=== PATIENT | female | born 1935 | race Caucasian/White ===

== ENCOUNTER 2017-07-26 09:18 | Day surgery (SDC) | payer MEDICARE, BC ==
[~2017-07-26 09:18] MED LIST: Albuterol 0.083% 2.5 MG/3 ML Neb Soln NEB SCH; Lactated Ringers 1,000 ML IV SCH; Lidocaine 1%/Sod Bicarbonate in NS 8.4% 1 ML Syringe IDERM PRN; Sodium Chloride 0.9% 10 ML Syringe FLUSH PRN
--- NOTE | 2017-07-26 09:44 | PCM.PREANE ---
Preanesthetic Assessment - Procedure Proposed Procedure: colonoscopy - Anesthesia/Transfusion/Family Hx Anesthesia History: Prior Anesthesia Without Reaction Family History of Anesthesia Reaction: No Transfusion History: No Prior Transfusion(s) - Review of Systems General: No Symptoms Pulmonary: Shortness of Breath (normal for her) Cardiovascular: No Symptoms Gastrointestinal: No Symptoms Neurological: No Symptoms, Other (brain aneurysm) Other: Reports: Thyroid Problems - Physical Assessment NPO Status Date: 07/25/17 NPO Status Time: 23:00 Pulse: 92 O2 Sat by Pulse Oximetry: 96 Respiratory Rate: 16 Blood Pressure: 142/72 Temperature: 98 F Height: 5 ft 7 in Weight: 43.227 kg ASA Class: 3 Mental Status: Alert & Oriented x3 Airway Class: Mallampati = 1 Dentition: Reports: Dentures (top and bottom) Thyro-Mental Finger Breadths: 3 Mouth Opening Finger Breadths: 3 ROM/Head Extension: Full Lungs: Clear to Auscultation, Normal Respiratory Effort, Decreased Breath Sounds Cardiovascular: Regular Rate, Regular Rhythm - Allergies Allergies/Adverse Reactions: Allergies Allergy/AdvReac Type Severity Reaction Status Date / Time nicotine [From [employer] ] Allergy Rash Verified 07/23/17 10:49 triamcinolone Allergy Confusion Verified 07/23/17 10:49 codeine AdvReac Excitabilit Verified 07/23/17 10:49 y - Blood Blood Available: No - Acknowledgements Anesthesia Type Planned: MAC Pt an Appropriate Candidate for the Planned Anesthesia: Yes Alternatives and Risks of Anesthesia Discussed w Pt/Guardian: Yes Pt/Guardian Understands and Agrees with Anesthesia Plan: Yes PreAnesthesia Questionnaire HEENT History: Reports: Impaired Vision, Other (See Below) Other HEENT History: has dentures, glasses Cardiovascular History: Reports: High Cholesterol, Hypertension Respiratory History: Reports: SOB Gastrointestinal History: Reports: Colon Polyp Genitourinary History: Reports: Renal Calculus, Other (See Below) Other Genitourinary History: macrocytosis 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 Musculoskeletal History: Reports: Osteoporosis Neurological History: Reports: Cerebral Aneurysms Psychiatric History: Reports: None Endocrine/Metabolic History: Reports: Hypothyroidism Hematologic History: Reports: None Immunologic History: Reports: Immunosuppression Oncologic (Cancer) History: Reports: Lung Dermatologic History: Reports: None - Past Surgical History Head Surgeries/Procedures: Reports: Shunt HEENT Surgical History: Reports: Oral Surgery Cardiovascular Surgical History: Reports: None Respiratory Surgical History: Reports: None GI Surgical History: Reports: Colonoscopy Female Surgical History: Reports: None Male Surgical History: Reports: None Endocrine Surgical History: Reports: None Musculoskeletal Surgical History: Reports: None Dermatological Surgical History: Reports: None - SUBSTANCE USE Smoking Status *Q: Former Smoker Tobacco Use Within Last Twelve Months: No Second Hand Smoke Exposure: Yes Days Per Week of Alcohol Use: 0 Recreational Drug Use History: No - HOME MEDS Home Medications: Home Meds Aspirin [Adult Low Dose Aspirin EC] 81 mg PO DAILY 07/23/17 [History] Calcium Carbonate/Vitamin D3 [Calcium 500-Vit D3 200 Caplet] 1 tab PO DAILY [History] Cholecalciferol (Vitamin D3) [Vitamin D3] 5,000 unit PO DAILY 07/23/17 [History] Docusate Sodium [Stool Softener] 100 mg PO DAILY PRN 07/23/17 [History] Hydrocortisone Acetate [Anucort-HC] 25 mg RECTAL ASDIRECTED 07/23/17 [History] Levothyroxine 25 mcg PO DAILY 07/23/17 [History] Simvastatin [Zocor] 5 mg PO DAILY 07/23/17 [History] amLODIPine Besylate [Norvasc] 5 mg PO DAILY 07/23/17 [History] - CURRENT (IN HOUSE) MEDS Current Meds: Current Medications Albuterol (Proventil Neb Soln) 2.5 mg NEB ONETIME DONATO Stop: 07/26/17 18:00 Lactated Ringer's (Ringers, Lactated) 1,000 mls @ 125 mls/hr IV ASDIRECTED DONATO Stop: 07/26/17 23:00 Lidocaine/Sodium Bicarbonate (Buffered Lidocaine 1% In Ns 8.4%) 0.25 ml IDERM ONETIME PRN PRN Reason: Prior to IV Start Stop: 07/26/17 18:00 Sodium Chloride (Saline Flush) 10 ml FLUSH ASDIRECTED PRN PRN Reason: Keep Vein Open Stop: 07/26/17 18:00
[2017-07-26] MEDS ORDERED: Propofol 200 MG/20 ML SDV ONE ×2 (10:47→11:57)
[2017-07-26] MEDS ORDERED: Lidocaine 1% 2 ML ONE ×2 (10:52)
[2017-07-26] MEDS ORDERED: Simethicone Drops 40 MG/0.6 ML 30 ML Bottle ONE (12:07)
--- NOTE | 2017-07-26 12:26 | PCM.OPNOTE ---
- General Post-Op/Procedure Note Date of Surgery/Procedure: 07/26/17 Operative Procedure(s): colonoscopy to cecum surveillance colonosocopy Pre Op Diagnosis: family hx of colon cancer Post-Op Diagnosis: Same Primary Surgeon: Kenan Pereira EBL in mLs: 0 Complications: None Condition: Good
--- NOTE | 2017-07-26 12:28 | PCM48HPAN ---
Post Anesthesia Note - EVALUATION WITHIN 48HRS OF ANESTHETIC Vital Signs in Normal Range: Yes Patient Participated in Evaluation: Yes Respiratory Function Stable: Yes Airway Patent: Yes Cardiovascular Function Stable: Yes Hydration Status Stable: Yes Pain Control Satisfactory: Yes Nausea and Vomiting Control Satisfactory: Yes Mental Status Recovered: Yes Pulse Rate: 92 Resp Rate: 16 Temperature: 36.6 C Blood Pressure: 142/72
--- NOTE | 2017-07-27 10:06 | OR ---
DATE OF OPERATION: 07/26/2017 SURGEON: Kenan Pereira MD PREOPERATIVE DIAGNOSIS: Family history of colon cancer. POSTOPERATIVE DIAGNOSIS: Family history of colon cancer. OPERATION PERFORMED: Surveillance colonoscopy to cecum. ANESTHESIA: The procedure was done under IV sedation. DESCRIPTION OF PROCEDURE: The patient was taken to the endoscopy room, placed in a supine position, connected to monitoring equipment, and given IV sedation, placed in left lateral position. Perianal area showed external hemorrhoids. Rectal exam showed good sphincter tone. A video Olympus pediatric scope was then introduced into the rectum and threaded up to the transverse colon. Loop performed by external rotation and careful maneuvering and the scope was advanced into the cecum, where the appendicular orifice was noted. Prep was excellent. [place] Cleansing Score grade A and the scope was slowly withdrawn showing the cecum, ascending colon, transverse colon, descending colon, sigmoid colon, and rectum. Retroflexed view was done. The patient tolerated the procedure. The findings were normal and will be followed up in the clinic with her family doctor. ESTIMATED BLOOD LOSS: MMODAL /[id number]
== END 2017-07-26 13:55 | disposition home or self-care (01) ==
LOC: JD.SDS 09:18
PROVIDERS: ATTEND Surgery
DX: Z12.11 Encounter for screening for malignant neoplasm of colon (principal); K64.4 Residual hemorrhoidal skin tags; J44.9 Chronic obstructive pulmonary disease, unspecified; I10 Essential (primary) hypertension; E03.9 Hypothyroidism, unspecified; F17.200 Nicotine dependence, unspecified, uncomplicated; Z86.010 Personal history of colon polyps; Z79.82 Long term (current) use of aspirin; Z80.0 Family history of malignant neoplasm of digestive organs
CPT/HCPCS: 94640; A9270; G0105; J2001; J7120; 00812; J2704

== ENCOUNTER 2018-09-21 19:01 | Emergency (ER) | payer MEDICARE, BC ==
[2018-09-21] MEDS ORDERED: Lactated Ringers 500 ML IV ONE (20:10)
--- NOTE | 2018-09-21 20:10 | EDM.PDOC ---
ED HPI GENERAL MEDICAL PROBLEM - General Chief Complaint: Back Pain or Injury Stated Complaint: BACK PAIN/DIARRHEA/VOMITING Time Seen by Provider: 09/21/18 20:03 - History of Present Illness INITIAL COMMENTS - FREE TEXT/NARRATIVE: 82-year-old female presents emergency room with low back pain. This seems to be getting worse with activity she's been down the garden doing quite a bit of work.(Most of this work is been yardwork. She's developed some low back pain however has not had any recent injuries to the area. She thinks most muscles are spasming. She has a history of prior malignancies mostly colon related she has routine follow-up for this. But feels this is doing pretty well at this time. She's not had any other problems she's not any chest pain chest pressure burning or frequency with urination at times she has some nausea vomiting patient has not had any recent trauma to her back she's had no loss of bowel or bladder control. The patient was doing a lot of work in the garden and standing on her legs different and she normally has this could've been a contributing factor. Treatments RATER ASSOCIATE: Reports: Other (see below) Other Treatments RATER ASSOCIATE: tylenol Bilateral Lower Back Pain Score (Numeric/FACES): 9 - Related Data Allergies Allergy/AdvReac Type Severity Reaction Status Date / Time nicotine [From [employer] ] Allergy Rash Verified 07/23/17 10:49 codeine AdvReac Excitabilit Verified 07/23/17 10:49 y triamcinolone AdvReac Confusion Verified 07/26/17 10:39 Home Meds: Home Meds Aspirin [Adult Low Dose Aspirin EC] 81 mg PO DAILY 07/23/17 [History] Calcium Carbonate/Vitamin D3 [Calcium 500-Vit D3 200 Caplet] 1 tab PO DAILY [History] Cholecalciferol (Vitamin D3) [Vitamin D3] 2,000 unit PO DAILY 07/23/17 [History] Docusate Sodium [Stool Softener] 100 mg PO DAILY PRN 07/23/17 [History] Levothyroxine 25 mcg PO DAILY 07/23/17 [History] Simvastatin [Zocor] 5 mg PO DAILY 07/23/17 [History] Past Medical History HEENT History: Reports: Impaired Vision, Other (See Below) Other HEENT History: has dentures, glasses Cardiovascular History: Reports: High Cholesterol, Hypertension Respiratory History: Reports: SOB Gastrointestinal History: Reports: Colon Polyp Genitourinary History: Reports: Renal Calculus, Other (See Below) Other Genitourinary History: macrocytosis 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 Musculoskeletal History: Reports: Osteoporosis Neurological History: Reports: Cerebral Aneurysms Psychiatric History: Reports: None Endocrine/Metabolic History: Reports: Hypothyroidism Hematologic History: Reports: None Immunologic History: Reports: Immunosuppression Oncologic (Cancer) History: Reports: Lung Dermatologic History: Reports: None - Past Surgical History Head Surgeries/Procedures: Reports: Shunt HEENT Surgical History: Reports: Oral Surgery Cardiovascular Surgical History: Reports: None Respiratory Surgical History: Reports: None GI Surgical History: Reports: Colonoscopy Female Surgical History: Reports: None Endocrine Surgical History: Reports: None Musculoskeletal Surgical History: Reports: None Dermatological Surgical History: Reports: None Social & Family History - Tobacco Use Smoking Status *Q: Former Smoker Used Tobacco, but Quit: Yes Month/Year Tobacco Last Used: 2 yrs - Caffeine Use Caffeine Use: Reports: Coffee, Soda - Recreational Drug Use Recreational Drug Use: No ED ROS GENERAL - Review of Systems Review Of Systems: See Below Constitutional: Reports: No Symptoms HEENT: Reports: No Symptoms Respiratory: Reports: No Symptoms Cardiovascular: Reports: No Symptoms, Dyspnea on Exertion Endocrine: Reports: No Symptoms GI/Abdominal: Reports: Nausea, Vomiting : Reports: No Symptoms Musculoskeletal: Reports: No Symptoms Skin: Reports: No Symptoms Neurological: Reports: No Symptoms Psychiatric: Reports: No Symptoms Hematologic/Lymphatic: Reports: No Symptoms ED EXAM,LOWER BACK PAIN/INJURY - Physical Exam Exam: See Below Exam Limited By: No Limitations General Appearance: Alert, No Apparent Distress Eye Exam: Bilateral Eye: Normal Inspection Ears: Normal External Exam, Normal Canal, Hearing Grossly Normal, Normal TMs Nose: Normal Inspection, Normal Mucosa, No Blood Throat/Mouth: Normal Inspection, Normal Lips, Normal Teeth, Normal Gums, Normal Oropharynx, Normal Voice, No Airway Compromise Head: Atraumatic, Normocephalic Neck: Normal Inspection, Supple, Non-Tender, Full Range of Motion Respiratory/Chest: No Respiratory Distress, Lungs Clear, Normal Breath Sounds, No Accessory Muscle Use, Chest Non-Tender Cardiovascular: Normal Peripheral Pulses, Regular Rate, Rhythm, No Edema, No Gallop, No JVD, No Murmur, No Rub GI/Abdominal: Normal Bowel Sounds, Soft, Non-Tender, No Abnormal Bruit Back Exam: Normal Inspection, Full Range of Motion. No: CVA Tenderness (L), CVA Tenderness (R), Decreased Range of Motion, Vertebral Tenderness Neurological: Alert, Normal Mood/Affect Course - Vital Signs Last Recorded V/S: Last Vital Signs Temp 36.4 C 09/21/18 19:16 Pulse 97 09/21/18 19:16 Resp 20 09/21/18 19:16 BP 141/78 H 09/21/18 19:16 Pulse Ox 100 09/21/18 19:16 - Orders/Labs/Meds Orders: Active Orders 24 hr Category Date Time Status EKG Documentation Completion [RC] STAT Care 09/21/18 20:10 Active Lactated Ringers [Ringers, Lactated] 1,000 ml Med 09/21/18 20:15 Active IV ASDIRECTED Medication Orders Lactated Ringer's (Ringers, Lactated) 1,000 mls @ 125 mls/hr IV ASDIRECTED DONATO Last Admin: 09/21/18 21:29 Dose: 125 mls/hr Labs: Laboratory Tests 09/21/18 09/21/18 09/21/18 Range/Units 20:50 20:50 21:35 WBC 10.05 H (3.98-10.04) K/mm3 RBC 4.54 (3.98-5.22) M/mm3 Hgb 14.6 (11.2-15.7) gm/L Hct 44.8 (34.1-44.9) % MCV 98.7 H (79.4-94.8) fl MCH 32.2 (25.6-32.2) pg MCHC 32.6 (32.2-35.5) g/dl RDW Std Deviation 49.2 H (36.4-46.3) fL Plt Count 194 (182-369) K/mm3 MPV 9.8 (9.4-12.3) fl Neutrophils % (Manual) 81 H (40-60) % Band Neutrophils % 0 (0-10) % Lymphocytes % (Manual) 5 L (20-40) % Atypical Lymphs % 0 % Monocytes % (Manual) 11 H (2-10) % Eosinophils % (Manual) 3 (0.7-5.8) % Basophils % (Manual) 0 L (0.1-1.2) Platelet Estimate Adequate Plt Morphology Comment Normal RBC Morph Comment Normal Sodium 142 (136-145) mEq/L Potassium 4.0 (3.5-5.1) mEq/L Chloride 107 (98-107) mEq/L Carbon Dioxide 24 (21-32) mEq/L Anion Gap 15.0 (5-15) BUN 24 H (7-18) mg/dL Creatinine 1.0 (0.55-1.02) mg/dL Est Cr Clr Drug Dosing 32.86 mL/min Estimated GFR (MDRD) 53 (>60) mL/min BUN/Creatinine Ratio 24.0 H (14-18) Glucose 114 (83-115) mg/dL Calcium 9.3 (8.5-10.1) mg/dL Magnesium 2.0 (1.8-2.4) mg/dl Total Bilirubin 0.5 (0.2-1.0) mg/dL AST 20 (15-37) U/L ALT 24 (14-59) U/L Alkaline Phosphatase 95 (46-116) U/L Total Protein 6.5 (6.4-8.2) g/dl Albumin 3.2 L (3.4-5.0) g/dl Globulin 3.3 gm/dL Albumin/Globulin Ratio 1.0 (1-2) Urine Color Yellow (Yellow) Urine Appearance Clear (Clear) Urine pH 5.5 (5.0-8.0) Ur Specific [place] > or = 1.030 (1.005-1.030) Urine Protein Negative (Negative) Urine Glucose (UA) Negative (Negative) Urine Ketones Trace H (Negative) Urine Occult Blood Negative (Negative) Urine Nitrite Negative (Negative) Urine Bilirubin 1+ H (Negative) Urine Urobilinogen 0.2 (0.2-1.0) Ur Leukocyte Esterase Negative (Negative) Urine RBC 0-5 (0-5) /hpf Urine WBC 0-5 (0-5) /hpf Ur Epithelial Cells Not seen (0-5) /hpf Urine Bacteria Few (FEW) /hpf Hyaline Casts 0-5 (0-5) /lpf Urine Mucus Few (FEW) /hpf Meds: Medications Generic Name Dose Route Start Last Admin Trade Name Freq PRN Reason Stop Dose Admin Lactated Ringer's 1,000 mls @ 125 mls/hr 09/21/18 20:15 09/21/18 21:29 Ringers, Lactated IV 125 mls/hr ASDIRECTED DONATO Administration Discontinued Medications Generic Name Dose Route Start Last Admin Trade Name Chely PRN Reason Stop Dose Admin Hydrocodone Bitart/Acetaminophen 1 tab 09/21/18 22:21 09/21/18 22:26 [place]set 325-5 Mg PO 09/21/18 22:22 1 tab ONETIME ONE Administration Lactated Ringer's 500 mls @ 999 mls/hr 09/21/18 20:10 09/21/18 20:24 Ringers, Lactated IV 09/21/18 20:40 999 mls/hr .BOLUS ONE Administration Magnesium Sulfate/Dextrose 1 100 mls @ 100 mls/hr 09/21/18 20:30 gm/ Premix IV 09/22/18 00:29 Q1H DONATO Magnesium Sulfate Confirm 09/21/18 20:24 09/21/18 20:29 Magnesium Sulfate In Water Premix Administered 09/21/18 20:25 Not Given Dose 50 mls @ as directed .ROUTE .STK-MED ONE Magnesium Sulfate 2 gm/ Premix 50 mls @ 25 mls/hr 09/21/18 20:30 09/21/18 20: 29 IV 09/21/18 22:29 25 mls/hr Q1H DONATO Administration Magnesium Sulfate 1 gm 09/21/18 20:17 Magnesium Sulfate 50% IM 09/21/18 20:18 ONETIME ONE - Re-Assessments/Exams Free Text/Narrative Re-Assessment/Exam: 09/21/18 23:03 Condition doing better after IV fluids and a half and Sunset. At this time she like to go home and try to get some rest we'll keep her on a half a Sunset every 8 hours as needed for the discomfort and Zofran as needed for nausea and vomiting. Departure - Departure Time of Disposition: 23:04 Disposition: Home, Self-Care 01 Clinical Impression: Low back strain, Nausea & vomiting - Discharge Information Referrals: Destinee Tinoco MD [Primary Care Provider] - Forms: ED Department Discharge Additional Instructions: Return to the emergency room with any questions problems worsening symptoms. Take the medications as directed. Clear liquid diet for the next 24 hours and slowly advance as tolerated follow- up with your regular provider on Wednesday if needed - My Orders Last 24 Hours: My Active Orders 09/21/18 20:10 EKG Documentation Completion [RC] STAT 09/21/18 20:15 Lactated Ringers [Ringers, Lactated] 1,000 ml IV ASDIRECTED - Assessment/Plan Last 24 Hours: My Active Orders 09/21/18 20:10 EKG Documentation Completion [RC] STAT 09/21/18 20:15 Lactated Ringers [Ringers, Lactated] 1,000 ml IV ASDIRECTED
[2018-09-21] MEDS ORDERED: Lactated Ringers 1,000 ML IV SCH (20:15)
[2018-09-21] MEDS ORDERED: Magnesium Sulfate (4.06 MEQ/ML) 1 GM/2 ML SDV IM ONE (20:17)
[2018-09-21] MEDS ORDERED: Magnesium Sulfate/Water 50 ML ONE (20:24)
[2018-09-21] MEDS ORDERED: Magnesium Sulfate/Water 2 GM in Premix Bag 1 BAG IV SCH (20:30)
[2018-09-21] MEDS ORDERED: Acetaminophen/HYDROcodone 325-5 MG Tab PO ONE (22:21)
== END 2018-09-21 23:22 | disposition home or self-care (01) ==
LOC: JD.ED 19:01
DX: S39.012A Strain of muscle, fascia and tendon of lower back, initial encounter (principal); R11.2 Nausea with vomiting, unspecified; I10 Essential (primary) hypertension; E78.00 Pure hypercholesterolemia, unspecified; E03.9 Hypothyroidism, unspecified; Z79.82 Long term (current) use of aspirin; Z79.899 Other long term (current) drug therapy; Z87.891 Personal history of nicotine dependence; Z88.5 Allergy status to narcotic agent; Z88.8 Allergy status to other drugs, medicaments and biological substances; X50.9XXA Other and unspecified overexertion or strenuous movements or postures, initial encounter
CPT/HCPCS: 36415; 80053; 81001; 83735; 85007; 85027; 93005; 96361; 96365; 96366; 99283; A9270; J3475; J7120

== ENCOUNTER 2022-10-19 11:09 | Inpatient (IN) | payer MEDICARE, BC ==
[2022-10-19] MEDS ORDERED: Sodium Chloride 0.9% 10 ML Syringe FLUSH PRN (11:45)
[2022-10-19] MEDS ORDERED: Metoprolol Tartrate 2.5 MG in Sodium Chloride 0.9% 50 ML IV ONE (11:56)
[2022-10-19 12:04] LABS: BASOPHILS ABSOLUTE AUTO 0.04 K/mm3 (0.01-0.08); BASOPHILS PERCENT AUTO 0.1 % (0.1-1.2); EOSINOPHILS PERCENT AUTO 0 (0.7-5.8); HEMATOCRIT 46.5 % (34.1-44.9); HEMOGLOBIN 15.5 gm/dl (11.2-15.7); IMMATURE GRAN ABSOLUTE AUTO 0.15 K/mm3 (0.00-0.10); IMMATURE GRAN PERCENT AUTO 0.4 % (<=1.0); LYMPHOCYTES ABSOLUTE AUTO 0.52 K/mm3 (1.18-3.74); LYMPHOCYTES PERCENT AUTO 1.6 % (19.3-51.7); MEAN CORPUSCULAR HGB CONC 33.3 g/dl (32.2-35.5); MEAN CORPUSCULAR VOLUME 99.1 fl (79.4-94.8); MEAN PLATELET VOLUME 10.5 fl (9.4-12.3); MONOCYTES ABSOLUTE AUTO 1.15 K/mm3 (0.24-0.36); MONOCYTES PERCENT AUTO 3.4 % (4.7-12.5); NEUTROPHILS ABSOLUTE AUTO 31.49 K/mm3 (1.56-6.13); NEUTROPHILS PERCENT AUTO 94.5 % (34.0-71.1); RED BLOOD CELL COUNT 4.69 M/mm3 (3.98-5.22); WHITE BLOOD CELL COUNT,WBC 33.35 K/mm3 (3.98-10.04)
[2022-10-19 12:05] LABS: A/G RATIO 0.4 (1-2); ALBUMIN 2.1 g/dl (3.4-5.0); ANION GAP 15.9 (5-15); BILIRUBIN TOTAL 1.4 mg/dL (0.2-1.0); BUN/CREATININE RATIO 16.7 (14-18); CALCIUM 8.2 mg/dL (8.5-10.1); CREATININE 1.2 mg/dL (0.55-1.02); EST CRCL DRUG DOSING (CG) 25.62 mL/min; POTASSIUM,K 3.9 mEq/L (3.5-5.1); PROTEIN TOTAL,TP 6.9 g/dl (6.4-8.2)
[2022-10-19 12:12] LABS: PLATELET COUNT,PLT 280 K/mm3 (182-369)
[2022-10-19] MEDS ORDERED: Metoprolol Tartrate 5 MG/5 ML SDV IV ONE (12:15)
[2022-10-19 12:23] LABS: SLIDE REVIEW ABNORMAL SMEAR
[2022-10-19] MEDS ORDERED: cefTRIAXone 1 GM in Sodium Chloride 0.9% 100 ML IV ONE (12:27)
[2022-10-19] MEDS ORDERED: Azithromycin 500 MG in Sodium Chloride 0.9% 250 ML IV ONE (12:27)
[2022-10-19] MEDS ORDERED: Sodium Chloride 0.9% 500 ML IV ONE (12:47)
[2022-10-19] MEDS ORDERED: Metoprolol Tartrate 25 MG Tab PO ONE (13:57)
[2022-10-19] MEDS ORDERED: Ondansetron 4 MG/2 ML SDV IVPUSH ONE (14:07)
[2022-10-19] MEDS ORDERED: Ondansetron 4 MG/2 ML SDV IV PRN (15:19)
[2022-10-19] MEDS ORDERED: Acetaminophen 325 MG Tab PO PRN (15:19)
[2022-10-19] MEDS ORDERED: Sodium Chloride 0.9% 1,000 ML IV SCH (15:30)
[2022-10-19] MEDS: Metoprolol Tartrate 25 MG Tab PO SCH (20:16)
[2022-10-19] MEDS: Albuterol/Ipratropium 3.0-0.5 MG/3 ML Neb Soln NEB SCH (20:25)
[2022-10-20] MEDS: Albuterol/Ipratropium 3.0-0.5 MG/3 ML Neb Soln NEB SCH ×3 (02:14→14:23)
[2022-10-20] MEDS: Metoprolol Tartrate 25 MG Tab PO SCH ×2 (04:01→12:20)
[2022-10-20] MEDS ORDERED: Levothyroxine 25 MCG Tab PO SCH (06:00)
[2022-10-20 08:28] LABS: HEMATOCRIT 41.9 % (34.1-44.9); MEAN CORPUSCULAR HEMOGLOBIN 32.9 pg (25.6-32.2); MEAN CORPUSCULAR HGB CONC 33.4 g/dl (32.2-35.5); MEAN CORPUSCULAR VOLUME 98.4 fl (79.4-94.8); MEAN PLATELET VOLUME 10.5 fl (9.4-12.3); PLATELET COUNT,PLT 264 K/mm3 (182-369); RED BLOOD CELL COUNT 4.26 M/mm3 (3.98-5.22); WHITE BLOOD CELL COUNT,WBC 23.74 K/mm3 (3.98-10.04)
[2022-10-20] MEDS ORDERED: Aspirin 81 MG Tab.EC PO SCH (09:00)
[2022-10-20] MEDS ORDERED: Pravastatin 20 MG Tab PO SCH (09:00)
[2022-10-20] MEDS ORDERED: Enoxaparin 30 MG/0.3 ML Syringe SUBCUT SCH (09:00)
[2022-10-20 09:29] LABS: A/G RATIO 0.4 (1-2); ALBUMIN 1.7 g/dl (3.4-5.0); ANION GAP 13.8 (5-15); BILIRUBIN TOTAL 0.7 mg/dL (0.2-1.0); BUN/CREATININE RATIO 33.3 (14-18); CALCIUM 7.3 mg/dL (8.5-10.1); CREATININE 0.9 mg/dL (0.55-1.02); EST CRCL DRUG DOSING (CG) 33.77 mL/min; POTASSIUM,K 3.8 mEq/L (3.5-5.1); PROTEIN TOTAL,TP 5.9 g/dl (6.4-8.2)
[2022-10-20] MEDS ORDERED: Sodium Chloride 0.9% 1,000 ML IV SCH ×2 (11:45→15:10)
[2022-10-20] MEDS ORDERED: cefTRIAXone 2 GM in Sodium Chloride 0.9% 100 ML IV SCH (13:00)
[2022-10-20] MEDS ORDERED: Azithromycin 500 MG in Sodium Chloride 0.9% 250 ML IV SCH (14:00)
[2022-10-20] MEDS ORDERED: Bisacodyl 10 MG Supp RECTAL ONE (14:43)
[2022-10-20] MEDS ORDERED: LORazepam 2 MG/ML SDV ONE (15:01)
[2022-10-20] MEDS ORDERED: LORazepam 2 MG/ML SDV IVPUSH STA (15:05)
[2022-10-20] MEDS ORDERED: Sodium Chloride 0.9% 1,000 ML ONE (15:05)
[2022-10-20] MEDS ORDERED: Sodium Chloride 0.9% 500 ML IV ONE (15:10)
[2022-10-20] MEDS ORDERED: Norepinephrine 4 MG in Dextrose 5% in Water 246 ML IV SCH ×2 (15:15)
[2022-10-20 15:21] LABS: PCO2 ARTERIAL 27.5 mmHg (35.0-45.0)
[2022-10-20] MEDS ORDERED: Sodium Chloride 0.9% 10 ML Syringe FLUSH PRN (15:21)
[2022-10-20] MEDS ORDERED: Iopamidol 755 Mg/ML 100 ML Bottle IVPUSH ONE (15:21)
[2022-10-20 15:22] LABS: BASE EXCESS ARTERIAL -18.6 (-2-2.0); BICARBONATE,ARTERIAL 9.2 meq/L (22.0-26.0); O2 SATURATION ARTERIAL 99.2 % (96.0-97.0)
[2022-10-20] MEDS ORDERED: Sodium Chloride 0.9% 45 ML IV SCH (15:30)
[2022-10-20 16:00] LABS: A/G RATIO 0.4 (1-2); ALANINE AMINOTRANSFERASE,ALT 188 U/L (14-59); ALBUMIN 1.7 g/dl (3.4-5.0); ALKALINE PHOSPHATASE 117 U/L (46-116); ANION GAP 18.4 (5-15); ASPARTATE AMNIOTRANSFERASE,AST 289 U/L (15-37); BILIRUBIN TOTAL 0.5 mg/dL (0.2-1.0); CALCIUM 7.6 mg/dL (8.5-10.1); CARBON DIOXIDE,CO2 18 mEq/L (21-32); CHLORIDE,CL 98 mEq/L (98-107); CREATININE 0.7 mg/dL (0.55-1.02); EST CRCL DRUG DOSING (CG) 43.42 mL/min; ESTIMATED GFR 85 mL/min (>60); GLUCOSE RANDOM 124 mg/dL (70-99); POTASSIUM,K 4.4 mEq/L (3.5-5.1); SODIUM,NA 130 mEq/L (136-145)
[2022-10-20 16:04] LABS: BASOPHILS PERCENT AUTO 0.1 % (0.1-1.2); EOSINOPHILS PERCENT AUTO 0.5 (0.7-5.8); HEMATOCRIT 43.8 % (34.1-44.9); HEMOGLOBIN 15.1 gm/dl (11.2-15.7); IMMATURE GRAN PERCENT AUTO 0.6 % (<=1.0); LYMPHOCYTES PERCENT AUTO 5.8 % (19.3-51.7); MEAN CORPUSCULAR HEMOGLOBIN 34.3 pg (25.6-32.2); MEAN CORPUSCULAR HGB CONC 34.5 g/dl (32.2-35.5); MEAN CORPUSCULAR VOLUME 99.5 fl (79.4-94.8); MEAN PLATELET VOLUME 11.1 fl (9.4-12.3); MONOCYTES PERCENT AUTO 6.9 % (4.7-12.5); NEUTROPHILS PERCENT AUTO 86.1 % (34.0-71.1); PLATELET COUNT,PLT 230 K/mm3 (182-369)
[2022-10-20 16:05] LABS: BASOPHILS ABSOLUTE AUTO 0.04 K/mm3 (0.01-0.08); EOSINOPHILS ABSOLUTE AUTO 0.14 K/mm3 (0.04-0.36); IMMATURE GRAN ABSOLUTE AUTO 0.16 K/mm3 (0.00-0.10); LYMPHOCYTES ABSOLUTE AUTO 1.65 K/mm3 (1.18-3.74); MONOCYTES ABSOLUTE AUTO 1.95 K/mm3 (0.24-0.36); NEUTROPHILS ABSOLUTE AUTO 24.46 K/mm3 (1.56-6.13)
[2022-10-20] MEDS ORDERED: Sodium Chloride 0.9% 1,000 ML IV ONE (16:33)
[2022-10-20] MEDS ORDERED: LORazepam 2 MG/ML SDV IVPUSH ONE (16:44)
[2022-10-20] MEDS ORDERED: fentaNYL 100 MCG/2 ML SDV IVPUSH ONE (17:01)
[2022-10-20 17:03] LABS: SLIDE REVIEW ABNORMAL SMEAR
[2022-10-21] MEDS: LORazepam 2 MG/ML SDV IVPUSH PRN ×7 (05:24→20:28)
[2022-10-21] MEDS ORDERED: Glycopyrrolate 0.2 MG/ML SDV IVPUSH PRN (06:59)
[2022-10-21] MEDS: fentaNYL 100 MCG/2 ML SDV IVPUSH PRN ×6 (10:57→20:29)
[2022-10-22] MEDS: fentaNYL 100 MCG/2 ML SDV IVPUSH PRN ×7 (00:13→21:40)
[2022-10-22] MEDS: LORazepam 2 MG/ML SDV IVPUSH PRN ×7 (00:15→21:39)
[2022-10-23] MEDS: fentaNYL 100 MCG/2 ML SDV IVPUSH PRN ×9 (00:55→22:17)
[2022-10-23] MEDS: LORazepam 2 MG/ML SDV IVPUSH PRN ×9 (00:58→22:23)
[2022-10-23] MEDS ORDERED: fentaNYL 50 MCG/HR Transdermal Patch TRDERM SCH (15:00)
[2022-10-24] MEDS: fentaNYL 100 MCG/2 ML SDV IVPUSH PRN (06:30)
[2022-10-24] MEDS: LORazepam 2 MG/ML SDV IVPUSH PRN ×7 (06:32→18:35)
[2022-10-24] MEDS: Morphine 4 MG/ML Syringe IVPUSH SCH ×10 (09:36→18:35)
== END 2022-10-24 20:59 | disposition expired | DRG 871 ==
LOC: JD.ED 11:09 → MERGE 14:51 → JD.MS 14:51 → JD.ICU 10-20 16:31 → JD.MS 10-22 22:34
PROVIDERS: ADMIT Internal Medicine; ATTEND Internal Medicine
DX: J18.9 Pneumonia, unspecified organism (principal); A41.9 Sepsis, unspecified organism; E86.0 Dehydration; I48.91 Unspecified atrial fibrillation; J44.9 Chronic obstructive pulmonary disease, unspecified; I11.0 Hypertensive heart disease with heart failure; I21.A1 Myocardial infarction type 2; J15.3 Pneumonia due to streptococcus, group B; J96.01 Acute respiratory failure with hypoxia; E87.1 Hypo-osmolality and hyponatremia; I13.0 Hypertensive heart and chronic kidney disease with heart failure and stage 1 through stage 4 chronic kidney disease, or unspecified chronic kidney disease; Z87.891 Personal history of nicotine dependence; W18.30XA Fall on same level, unspecified, initial encounter; J44.0 Chronic obstructive pulmonary disease with (acute) lower respiratory infection; E03.9 Hypothyroidism, unspecified; E78.5 Hyperlipidemia, unspecified; Z66 Do not resuscitate; R74.01 Elevation of levels of liver transaminase levels; H54.7 Unspecified visual loss; I50.9 Heart failure, unspecified; E78.00 Pure hypercholesterolemia, unspecified; I48.0 Paroxysmal atrial fibrillation; N18.9 Chronic kidney disease, unspecified; M81.0 Age-related osteoporosis without current pathological fracture; Z79.51 Long term (current) use of inhaled steroids; Z51.5 Encounter for palliative care; Z79.899 Other long term (current) drug therapy; Z87.442 Personal history of urinary calculi; Z86.010 Personal history of colon polyps; Z79.82 Long term (current) use of aspirin; Z98.890 Other specified postprocedural states; Z88.5 Allergy status to narcotic agent; Z88.8 Allergy status to other drugs, medicaments and biological substances
CPT/HCPCS: 36415; 36600; 70496; 70496-26; 70498; 70498-26; 71045; 71045-26; 74177; 74177-26; 80053; 82803; 83605; 84484; 85025; 85027; 87040; 87077; 87154; 87186; 93005; 93010; 94640; 94761; 96361; 96365; 96366; 96367; 96372; 96375; 96376; 97161-GP; 97165-GO; 99238; 99285; 99285-25; A9270-GY; J0456; J0696; J1650; J2060; J2270; J2405; J3010; J3490; J7030; J7050; J7620-GY